=== PATIENT | female | born 1950 | race African-American/Black ===

== ENCOUNTER 2017-04-18 05:05 | Inpatient (IN) | payer MEDICARE, MEDICAID ==
[2017-04-18] MEDS: ASPIRIN CHEWABLE 81 MG TABLET. PO (05:26)
[2017-04-18 06:00] LABS: ADD MAN DIFF? NO
[2017-04-18 06:08] LABS: BASO # 0.1 x10^3/uL (0.0-0.2); BASO % 1 % (0-3); EOS # 0.1 x10^3/uL (0.0-0.7); EOS % 1 % (0-3); HEMATOCRIT 21.1 % (36.0-47.0); LYMPH # 1.8 x10^3/uL (1.0-4.8); LYMPH % 17 % (24-48); MEAN CORPUSCULAR HEMOGLOBIN 25 pg (25-35); MEAN CORPUSCULAR HGB CONC 30 g/dL (31-37); MEAN CORPUSCULAR VOLUME 84 fL (79-100); MONO # 0.8 x10^3/uL (0.0-1.1); MONO % 8 % (0-9); NEUT # 8.2 x10^3uL (1.8-7.7); NEUT % 74 % (31-73); PLATELET COUNT 418 x10^3/uL (140-400); RED BLOOD COUNT 2.49 x10^6/uL (3.50-5.40); RED CELL DISTRIBUTION WIDTH 18.2 % (11.5-14.5); WHITE BLOOD COUNT 11.1 x10^3/uL (4.0-11.0)
[2017-04-18 06:11] LABS: ANION GAP 3 (6-14); BLOOD UREA NITROGEN 31 mg/dL (7-20); BUN/CREATININE RATIO 26 (6-20); CARBON DIOXIDE 28 mmol/L (21-32); CHLORIDE 101 mmol/L (98-107); CREATININE 1.2 mg/dL (0.6-1.0); GFR 54.1; HEMOGLOBIN 6.3 g/dL (12.0-15.5); POTASSIUM 5.2 mmol/L (3.5-5.1); SODIUM 132 mmol/L (136-145)
[2017-04-18 06:13] LABS: GLUCOSE 465 mg/dL (70-99)
[2017-04-18 06:16] LABS: ALBUMIN 2.7 g/dL (3.4-5.0); ALBUMIN/GLOBULIN RATIO 0.6 (1.0-1.7); ALK PHOS 156 U/L (46-116); ALT (SGPT) 29 U/L (14-59); AST (SGOT) 26 U/L (15-37); TOTAL BILIRUBIN 0.1 mg/dL (0.2-1.0); TOTAL PROTEIN 6.9 g/dL (6.4-8.2)
[2017-04-18 06:19] LABS: TROPONINI < 0.017 ng/mL (0.000-0.055)
[2017-04-18] MEDS: IV NORMAL SALINE 1000ML BAG 1,000 ML IV ×3 (06:45→19:17)
[2017-04-18 07:09] LABS: CKMB INDEX 1.3 % (0-4); CKMB MASS 2.3 ng/mL (0.0-3.6); CREATINE KINASE 180 U/L (26-192)
[2017-04-18 08:19] LABS: NT-PRO BNP 56 pg/mL (0-124)
[2017-04-18 09:00] LABS: % SAT IRON 4 % (15-34); IRON,SERUM 12 ug/dL (50-170)
[2017-04-18 09:11] LABS: RETIC COUNT 2.3 % (0.5-2.5)
[2017-04-18 09:15] LABS: LACTATE DEHYDROGENASE 241 U/L (81-234)
[2017-04-18 09:15] LABS: FERRITIN 7 ng/mL (8-252)
[2017-04-18] MEDS ORDERED: LABETALOL 20 MG/4 ML DISP.SYRIN. IVP ×2 (09:30→10:30)
[2017-04-18] MEDS ORDERED: DEXTROSE 50% 25 GM / 50ML DISP.SYRIN. IV (09:30)
[2017-04-18] MEDS: IV NORMAL SALINE 500ML BAG 500 ML IV (09:30)
[2017-04-18 09:37] LABS: FECAL OB PT POSITIVE (NEG); NEG OBC FOB NEG; POS OBC FOB POS
[2017-04-18 10:09] LABS: % BANDS 3 % (0-9); % EOS 1 % (0-5); % LYMPHS 18 % (24-48); % MONOS 6 % (0-10); % SEGS 72 % (35-66); HYPOCHROMIA PRESENT; PLT ESTIMATE ADEQUATE (ADEQUATE); POIKILOCYTOSIS PRESENT; POLYCHROMASIA PRESENT
[2017-04-18 10:10] LABS: ANISOCYTOSIS PRESENT; CHOLESTEROL 146 mg/dL (0-200); HDLC 60 mg/dL (40-60); LDLC 61 mg/dL (0-100); MICROCYTOSIS PRESENT; NON-HDL CHOLESTEROL 86 mg/dL (0-129); TRIGLYCERIDES 124 mg/dL (0-150); VLDLC 25 mg/dL (0-40)
[2017-04-18 10:11] LABS: CHOLESTEROL/HDL RATIO 2.4
[2017-04-18] MEDS ORDERED: ONDANSETRON PF 4 MG/2 ML VIAL. IV (10:30)
[2017-04-18] MEDS ORDERED: ONDANSETRON ODT 4 MG TAB.RAPDIS. PO (10:30)
[2017-04-18] MEDS ORDERED: MAGNESIUM HYDROXIDE 2,400 MG/30 ML ORAL.SUSP. PO (10:30)
[2017-04-18] MEDS ORDERED: ACETAMINOPHEN 325 MG TABLET. PO (10:30)
[2017-04-18] MEDS ORDERED: ACETAMINOPHEN 500 MG TABLET PO (10:30)
[2017-04-18] MEDS ORDERED: ALBUTEROL SULFATE 2.5 MG/3 ML NEBU. NEB (10:45)
[2017-04-18] MEDS: SODIUM POLYSTYRENE SULFONATE 15 GM/60 ML ORAL.SUSP. PO (10:47)
[2017-04-18] MEDS: MAGNESIUM HYDROXIDE 2,400 MG/30 ML ORAL.SUSP. PO (10:47)
[2017-04-18] MEDS: POLYETHYLENE GLYCOL 3350 17 GM PACKET. PO (10:47)
[2017-04-18] MEDS: HYDROcodone/APAP 5/325MG 1 TAB TABLET PO ×2 (10:53→17:22)
[2017-04-18] MEDS: CALCIUM CARB/VIT D3 500/200 TABLET. PO (11:00)
[2017-04-18 11:05] LABS: POC GLUCOSE 434 mg/dL (70-99)
[2017-04-18] MEDS: INSULIN ASPART 300 UNITS/3 ML INSULN.PEN SQ ×5 (11:13→17:26)
[2017-04-18 11:18] LABS: FREE T4 0.86 ng/dL (0.76-1.46)
[2017-04-18 11:18] LABS: THYROID STIM HORMONE (TSH) 2.502 uIU/mL (0.358-3.74)
[2017-04-18] MEDS: IPRATRPIUM/ALBUTEROL 0.5/2.5MG 3 ML NEBU. NEB ×3 (11:47→19:55)
[2017-04-18] MEDS: TRIAMCINOLONE ACETONIDE 0.1% TOPICAL CREAM 15GM TUBE. TP ×2 (14:00→21:00)
[2017-04-18] MEDS: LACTOBACILLUS RHAMNOSUS GG 1 CAPSULE. PO ×2 (15:55→22:42)
[2017-04-18] MEDS: TRIAMTERENE/HCTZ 37.5/25MG TABLET. PO (15:55)
[2017-04-18] MEDS: DOCUSATE SODIUM 100 MG CAPSULE. PO ×2 (15:55→21:00)
[2017-04-18] MEDS: CHOLECALCIFEROL (VITAMIN D3) 1,000 UNIT TABLET PO (15:56)
[2017-04-18] MEDS: ASCORBIC ACID 500 MG TABLET PO (15:56)
[2017-04-18] MEDS: GABAPENTIN 400 MG CAPSULE. PO ×2 (15:56→22:42)
[2017-04-18] MEDS: buPROPion SR 100 MG TABLET.SA. PO ×2 (15:56→22:42)
[2017-04-18] MEDS: DULoxetine HCL 30 MG CAPSULE.DR PO (15:56)
[2017-04-18] MEDS: FERROUS SULFATE 325 MG TABLET. PO (15:57)
[2017-04-18] MEDS: LEVOTHYROXINE 100 MCG TABLET PO (15:57)
[2017-04-18] MEDS: MULTIVITAMIN with MINERAL TABLET. PO (15:57)
[2017-04-18] MEDS: LISINOPRIL 20 MG TABLET PO (15:58)
[2017-04-18] MEDS: INSULIN DETEMIR 300 UNITS/3 ML INSULN.PEN. SQ ×2 (16:04→22:46)
[2017-04-18] MEDS: NYSTATIN 100,000 UNIT/GM TOPICAL CREAM 15GM TUBE. TP ×2 (16:07→21:00)
[2017-04-18 16:12] LABS: POC GLUCOSE 319 mg/dL (70-99)
[2017-04-18 17:04] LABS: POC GLUCOSE 354 mg/dL (70-99)
[2017-04-18 18:11] LABS: HAPTOGLOBIN 212 mg/dL (34-200)
[2017-04-18] MEDS: SODIUM PHOSPHATES 19/7GM 133 ML ENEMA. PR (18:44)
[2017-04-18 20:20] LABS: POC GLUCOSE 336 mg/dL (70-99)
[2017-04-18] MEDS ORDERED: NON FORMULARY ITEM (Nystatin/Triamcin (Nystatin-Triamcinolone Cream) 1 APP) TP (21:00)
[2017-04-18] MEDS: PANTOPRAZOLE 40 MG TABLET.DR. PO (22:41)
[2017-04-18] MEDS: traZODone 50 MG TABLET. PO (22:42)
[2017-04-18] MEDS: MONTELUKAST SODIUM 10 MG TABLET. PO (22:42)
[2017-04-19] MEDS: IV NORMAL SALINE 1000ML BAG 1,000 ML IV ×2 (05:17→15:17)
[2017-04-19] MEDS: HYDROcodone/APAP 5/325MG 1 TAB TABLET PO ×3 (05:41→22:21)
[2017-04-19] MEDS: IPRATRPIUM/ALBUTEROL 0.5/2.5MG 3 ML NEBU. NEB ×4 (07:13→20:00)
[2017-04-19] MEDS: INSULIN ASPART 300 UNITS/3 ML INSULN.PEN SQ ×6 (07:30→17:43)
[2017-04-19 08:40] LABS: POC GLUCOSE 92 mg/dL (70-99)
[2017-04-19] MEDS ORDERED: NON FORMULARY ITEM (Tiotropium Bromide (Spiriva) 1 CAP) IH (09:00)
[2017-04-19] MEDS ORDERED: LIDOCAINE WITH 8.4% SOD BICARB 3 ML DISP.SYRIN. (09:18)
[2017-04-19] MEDS: LIDOCAINE WITH 8.4% SOD BICARB 3 ML DISP.SYRIN. IJ (09:30)
[2017-04-19] MEDS: CHOLECALCIFEROL (VITAMIN D3) 1,000 UNIT TABLET PO (10:15)
[2017-04-19] MEDS: TRIAMCINOLONE ACETONIDE 0.1% TOPICAL CREAM 15GM TUBE. TP ×3 (10:15→21:00)
[2017-04-19] MEDS: NYSTATIN 100,000 UNIT/GM TOPICAL CREAM 15GM TUBE. TP ×3 (10:15→21:00)
[2017-04-19] MEDS: DULoxetine HCL 30 MG CAPSULE.DR PO (10:15)
[2017-04-19] MEDS: buPROPion SR 100 MG TABLET.SA. PO ×2 (10:15→20:53)
[2017-04-19] MEDS: LISINOPRIL 20 MG TABLET PO (10:15)
[2017-04-19] MEDS: POLYETHYLENE GLYCOL 3350 17 GM PACKET. PO (10:15)
[2017-04-19] MEDS: LACTOBACILLUS RHAMNOSUS GG 1 CAPSULE. PO ×2 (10:15→20:53)
[2017-04-19] MEDS: MULTIVITAMIN with MINERAL TABLET. PO (10:15)
[2017-04-19] MEDS: GABAPENTIN 400 MG CAPSULE. PO ×3 (10:15→20:53)
[2017-04-19] MEDS: INSULIN DETEMIR 300 UNITS/3 ML INSULN.PEN. SQ ×2 (10:15→22:24)
[2017-04-19] MEDS: DOCUSATE SODIUM 100 MG CAPSULE. PO ×2 (10:15→20:53)
[2017-04-19] MEDS: FERROUS SULFATE 325 MG TABLET. PO (10:15)
[2017-04-19] MEDS: CALCIUM CARB/VIT D3 500/200 TABLET. PO (10:15)
[2017-04-19] MEDS: ASCORBIC ACID 500 MG TABLET PO (10:15)
[2017-04-19] MEDS: TRIAMTERENE/HCTZ 37.5/25MG TABLET. PO (10:15)
[2017-04-19] MEDS: LEVOTHYROXINE 100 MCG TABLET PO (10:15)
[2017-04-19 10:41] LABS: ADD MAN DIFF? NO
[2017-04-19 10:47] LABS: BASO # 0.1 x10^3/uL (0.0-0.2); BASO % 1 % (0-3); EOS # 0.1 x10^3/uL (0.0-0.7); EOS % 1 % (0-3); LYMPH # 1.7 x10^3/uL (1.0-4.8); LYMPH % 17 % (24-48); MEAN CORPUSCULAR HEMOGLOBIN 25 pg (25-35); MEAN CORPUSCULAR HGB CONC 30 g/dL (31-37); MEAN CORPUSCULAR VOLUME 83 fL (79-100); MONO # 0.9 x10^3/uL (0.0-1.1); MONO % 9 % (0-9); NEUT # 7.7 x10^3uL (1.8-7.7); NEUT % 73 % (31-73); PLATELET COUNT 409 x10^3/uL (140-400); RED BLOOD COUNT 2.46 x10^6/uL (3.50-5.40); RED CELL DISTRIBUTION WIDTH 18.4 % (11.5-14.5); WHITE BLOOD COUNT 10.5 x10^3/uL (4.0-11.0)
[2017-04-19 10:53] LABS: HEMATOCRIT 20.4 % (36.0-47.0); HEMOGLOBIN 6.1 g/dL (12.0-15.5)
[2017-04-19 11:03] LABS: ALBUMIN 2.7 g/dL (3.4-5.0); ALBUMIN/GLOBULIN RATIO 0.7 (1.0-1.7); ALK PHOS 154 U/L (46-116); ALT (SGPT) 27 U/L (14-59); ANION GAP 8 (6-14); AST (SGOT) 25 U/L (15-37); BLOOD UREA NITROGEN 27 mg/dL (7-20); BUN/CREATININE RATIO 27 (6-20); CALCIUM 8.9 mg/dL (8.5-10.1); CARBON DIOXIDE 30 mmol/L (21-32); CHLORIDE 101 mmol/L (98-107); GFR 66.7; GLUCOSE 132 mg/dL (70-99); POTASSIUM 4.3 mmol/L (3.5-5.1); SODIUM 139 mmol/L (136-145); TOTAL BILIRUBIN 0.2 mg/dL (0.2-1.0); TOTAL PROTEIN 6.8 g/dL (6.4-8.2)
[2017-04-19 11:10] LABS: CROSSMATCH AHG 1 1
[2017-04-19 12:04] LABS: SICKLE CELL SCREEN NEGATIVE
[2017-04-19 13:50] LABS: POC GLUCOSE 228 mg/dL (70-99)
[2017-04-19] MEDS: traZODone 50 MG TABLET. PO (20:54)
[2017-04-19] MEDS: MONTELUKAST SODIUM 10 MG TABLET. PO (20:54)
[2017-04-19] MEDS: PANTOPRAZOLE 40 MG TABLET.DR. PO (20:54)
[2017-04-19 23:11] LABS: MRSA BY PCR Positive (Negative)
[2017-04-20] MEDS: IV NORMAL SALINE 1000ML BAG 1,000 ML IV ×3 (01:17→21:17)
[2017-04-20 06:32] LABS: POC GLUCOSE 97 mg/dL (70-99)
[2017-04-20] MEDS: IPRATRPIUM/ALBUTEROL 0.5/2.5MG 3 ML NEBU. NEB ×4 (07:13→20:45)
[2017-04-20] MEDS: INSULIN ASPART 300 UNITS/3 ML INSULN.PEN SQ ×6 (07:30→17:04)
[2017-04-20 07:49] LABS: POC GLUCOSE 201 mg/dL (70-99)
[2017-04-20] MEDS: TRIAMCINOLONE ACETONIDE 0.1% TOPICAL CREAM 15GM TUBE. TP ×3 (09:00→20:00)
[2017-04-20] MEDS: NYSTATIN 100,000 UNIT/GM TOPICAL CREAM 15GM TUBE. TP ×3 (09:00→20:00)
[2017-04-20] MEDS: buPROPion SR 100 MG TABLET.SA. PO ×2 (09:44→22:18)
[2017-04-20] MEDS: MULTIVITAMIN with MINERAL TABLET. PO (09:44)
[2017-04-20] MEDS: DOCUSATE SODIUM 100 MG CAPSULE. PO ×2 (09:45→22:19)
[2017-04-20] MEDS: LEVOTHYROXINE 100 MCG TABLET PO (09:45)
[2017-04-20] MEDS: FERROUS SULFATE 325 MG TABLET. PO (09:45)
[2017-04-20] MEDS: ASCORBIC ACID 500 MG TABLET PO (09:45)
[2017-04-20] MEDS: CALCIUM CARB/VIT D3 500/200 TABLET. PO (09:45)
[2017-04-20] MEDS: TRIAMTERENE/HCTZ 37.5/25MG TABLET. PO (09:45)
[2017-04-20] MEDS: LACTOBACILLUS RHAMNOSUS GG 1 CAPSULE. PO ×2 (09:45→22:18)
[2017-04-20] MEDS: GABAPENTIN 400 MG CAPSULE. PO ×3 (09:45→22:19)
[2017-04-20] MEDS: DULoxetine HCL 30 MG CAPSULE.DR PO (09:45)
[2017-04-20] MEDS: LISINOPRIL 20 MG TABLET PO (09:46)
[2017-04-20] MEDS: CHOLECALCIFEROL (VITAMIN D3) 1,000 UNIT TABLET PO (09:46)
[2017-04-20] MEDS: POLYETHYLENE GLYCOL 3350 17 GM PACKET. PO ×3 (09:46→22:23)
[2017-04-20] MEDS: INSULIN DETEMIR 300 UNITS/3 ML INSULN.PEN. SQ ×2 (09:59→21:00)
[2017-04-20 10:12] LABS: POC GLUCOSE 124 mg/dL (70-99)
[2017-04-20 11:02] LABS: POC GLUCOSE 294 mg/dL (70-99)
[2017-04-20] MEDS: PANTOPRAZOLE 40 MG TABLET.DR. PO (11:30)
[2017-04-20 12:39] LABS: HEMATOCRIT 30.1 % (36.0-47.0); HEMOGLOBIN 8.5 g/dL (12.0-15.5); MEAN CORPUSCULAR HGB CONC 28 g/dL (31-37)
[2017-04-20 14:41] LABS: RETIC COUNT 3.2 % (0.5-2.5)
[2017-04-20] MEDS: ALTEPLASE 2 MG VIAL INT CAT ×2 (14:47)
[2017-04-20 14:51] LABS: LACTATE DEHYDROGENASE 238 U/L (81-234)
[2017-04-20 16:37] LABS: POC GLUCOSE 304 mg/dL (70-99)
[2017-04-20 22:14] LABS: POC GLUCOSE 107 mg/dL (70-99)
[2017-04-20] MEDS: MONTELUKAST SODIUM 10 MG TABLET. PO (22:18)
[2017-04-20] MEDS: HYDROcodone/APAP 5/325MG 1 TAB TABLET PO (22:18)
[2017-04-20] MEDS: traZODone 50 MG TABLET. PO (22:19)
[2017-04-21 00:32] LABS: POC GLUCOSE 143 mg/dL (70-99)
[2017-04-21] MEDS ORDERED: MORPHINE SULFATE 2 MG/ML DISP.SYRIN. IV (07:00)
[2017-04-21] MEDS ORDERED: PROCHLORPERAZINE 10 MG/2 ML VIAL. IV (07:00)
[2017-04-21] MEDS ORDERED: fentaNYL PF VIAL 100 MCG/2 ML VIAL IV ×2 (07:00)
[2017-04-21] MEDS ORDERED: ONDANSETRON PF 4 MG/2 ML VIAL. IV (07:00)
[2017-04-21] MEDS ORDERED: LIDOCAINE 1% PF 2 ML VIAL. ID (07:00)
[2017-04-21] MEDS: IPRATRPIUM/ALBUTEROL 0.5/2.5MG 3 ML NEBU. NEB ×4 (07:15→19:34)
[2017-04-21] MEDS: PANTOPRAZOLE 40 MG TABLET.DR. PO (07:30)
[2017-04-21] MEDS: INSULIN ASPART 300 UNITS/3 ML INSULN.PEN SQ ×6 (07:30→18:09)
[2017-04-21] MEDS: LEVOTHYROXINE 100 MCG TABLET PO (07:30)
[2017-04-21 07:40] LABS: POC GLUCOSE 157 mg/dL (70-99)
[2017-04-21] MEDS: FERROUS SULFATE 325 MG TABLET. PO ×3 (08:00→18:05)
[2017-04-21] MEDS: CHOLECALCIFEROL (VITAMIN D3) 1,000 UNIT TABLET PO (09:00)
[2017-04-21] MEDS: ASCORBIC ACID 500 MG TABLET PO (09:00)
[2017-04-21] MEDS: CALCIUM CARB/VIT D3 500/200 TABLET. PO (09:00)
[2017-04-21] MEDS: DULoxetine HCL 30 MG CAPSULE.DR PO (09:00)
[2017-04-21] MEDS: LACTOBACILLUS RHAMNOSUS GG 1 CAPSULE. PO ×2 (09:00→20:24)
[2017-04-21] MEDS: NYSTATIN 100,000 UNIT/GM TOPICAL CREAM 15GM TUBE. TP ×3 (09:00→21:00)
[2017-04-21] MEDS: buPROPion SR 100 MG TABLET.SA. PO ×2 (09:00→20:24)
[2017-04-21] MEDS: INSULIN DETEMIR 300 UNITS/3 ML INSULN.PEN. SQ ×2 (09:00→22:02)
[2017-04-21] MEDS: MULTIVITAMIN with MINERAL TABLET. PO (09:00)
[2017-04-21] MEDS: GABAPENTIN 400 MG CAPSULE. PO ×3 (09:00→20:24)
[2017-04-21] MEDS: LISINOPRIL 20 MG TABLET PO (09:00)
[2017-04-21] MEDS: POLYETHYLENE GLYCOL 3350 17 GM PACKET. PO ×2 (09:00→20:27)
[2017-04-21] MEDS: TRIAMTERENE/HCTZ 37.5/25MG TABLET. PO (09:00)
[2017-04-21] MEDS: DOCUSATE SODIUM 100 MG CAPSULE. PO ×2 (09:00→20:24)
[2017-04-21] MEDS: TRIAMCINOLONE ACETONIDE 0.1% TOPICAL CREAM 15GM TUBE. TP ×3 (09:00→21:00)
[2017-04-21] MEDS: IV RINGERS,LACTATED 1000ML 1,000 ML IV (11:34)
[2017-04-21 11:38] LABS: POC GLUCOSE 220 mg/dL (70-99)
[2017-04-21] MEDS ORDERED: LIDOCAINE 2% PF Vial for OR 5 ML VIAL. (12:01)
[2017-04-21] MEDS ORDERED: PROPOFOL 20 ML IV (12:01)
[2017-04-21 16:36] LABS: POC GLUCOSE 214 mg/dL (70-99)
[2017-04-21] MEDS: MONTELUKAST SODIUM 10 MG TABLET. PO (20:24)
[2017-04-21] MEDS: HYDROcodone/APAP 5/325MG 1 TAB TABLET PO (20:25)
[2017-04-21] MEDS: traZODone 50 MG TABLET. PO (20:25)
[2017-04-21 20:55] LABS: POC GLUCOSE 181 mg/dL (70-99)
[2017-04-22] MEDS: IPRATRPIUM/ALBUTEROL 0.5/2.5MG 3 ML NEBU. NEB ×2 (07:31→11:40)
[2017-04-22 08:05] LABS: POC GLUCOSE 189 mg/dL (70-99)
[2017-04-22] MEDS: CHOLECALCIFEROL (VITAMIN D3) 1,000 UNIT TABLET PO (08:40)
[2017-04-22] MEDS: buPROPion SR 100 MG TABLET.SA. PO (08:40)
[2017-04-22] MEDS: POLYETHYLENE GLYCOL 3350 17 GM PACKET. PO (08:41)
[2017-04-22] MEDS: TRIAMTERENE/HCTZ 37.5/25MG TABLET. PO ×2 (08:41→08:59)
[2017-04-22] MEDS: LEVOTHYROXINE 100 MCG TABLET PO (08:41)
[2017-04-22] MEDS: GABAPENTIN 400 MG CAPSULE. PO (08:41)
[2017-04-22] MEDS: MULTIVITAMIN with MINERAL TABLET. PO (08:42)
[2017-04-22] MEDS: PANTOPRAZOLE 40 MG TABLET.DR. PO (08:42)
[2017-04-22] MEDS: DULoxetine HCL 30 MG CAPSULE.DR PO (08:43)
[2017-04-22] MEDS: DOCUSATE SODIUM 100 MG CAPSULE. PO (08:43)
[2017-04-22] MEDS: FERROUS SULFATE 325 MG TABLET. PO ×2 (08:43→12:41)
[2017-04-22] MEDS: LACTOBACILLUS RHAMNOSUS GG 1 CAPSULE. PO (08:43)
[2017-04-22] MEDS: CALCIUM CARB/VIT D3 500/200 TABLET. PO (08:43)
[2017-04-22] MEDS: ASCORBIC ACID 500 MG TABLET PO (08:44)
[2017-04-22] MEDS: INSULIN DETEMIR 300 UNITS/3 ML INSULN.PEN. SQ (08:52)
[2017-04-22] MEDS: INSULIN ASPART 300 UNITS/3 ML INSULN.PEN SQ ×4 (08:53→12:47)
[2017-04-22] MEDS: LISINOPRIL 20 MG TABLET PO (08:57)
[2017-04-22] MEDS: NYSTATIN 100,000 UNIT/GM TOPICAL CREAM 15GM TUBE. TP (09:00)
[2017-04-22] MEDS: TRIAMCINOLONE ACETONIDE 0.1% TOPICAL CREAM 15GM TUBE. TP (09:00)
[2017-04-22 11:39] LABS: POC GLUCOSE 219 mg/dL (70-99)
== END 2017-04-22 15:20 | disposition home or self-care (01) | DRG 377 ==
LOC: ER 05:05 → 5 SOUTH 07:00
PROC: 0DB78ZX Excision of Stomach, Pylorus, Via Natural or Artificial Opening Endoscopic, Diagnostic (ICD-10-PCS; principal; 2017-04-21 12:09)
PROC: 30233N1 Transfusion of Nonautologous Red Blood Cells into Peripheral Vein, Percutaneous Approach (ICD-10-PCS; 2017-04-21 12:09)
PROC: 02HV33Z Insertion of Infusion Device into Superior Vena Cava, Percutaneous Approach (ICD-10-PCS; 2017-04-21 12:09)
PROC: B548ZZA Ultrasonography of Superior Vena Cava, Guidance (ICD-10-PCS; 2017-04-21 12:09)
DX: K31.811 Angiodysplasia of stomach and duodenum with bleeding (principal); N17.0 Acute kidney failure with tubular necrosis; E11.00 Type 2 diabetes mellitus with hyperosmolarity without nonketotic hyperglycemic-hyperosmolar coma (NKHHC); E11.22 Type 2 diabetes mellitus with diabetic chronic kidney disease; E66.01 Morbid (severe) obesity due to excess calories; R13.10 Dysphagia, unspecified; E11.649 Type 2 diabetes mellitus with hypoglycemia without coma; Z68.42 Body mass index [BMI] 45.0-49.9, adult; K55.20 Angiodysplasia of colon without hemorrhage; M94.0 Chondrocostal junction syndrome [Tietze]; E87.5 Hyperkalemia; D50.9 Iron deficiency anemia, unspecified; R07.2 Precordial pain; I10 Essential (primary) hypertension; R79.89 Other specified abnormal findings of blood chemistry; Z85.3 Personal history of malignant neoplasm of breast; E03.9 Hypothyroidism, unspecified; E78.5 Hyperlipidemia, unspecified; F32.9 Major depressive disorder, single episode, unspecified; G47.33 Obstructive sleep apnea (adult) (pediatric); I12.9 Hypertensive chronic kidney disease with stage 1 through stage 4 chronic kidney disease, or unspecified chronic kidney disease; L89.91 Pressure ulcer of unspecified site, stage 1; J44.9 Chronic obstructive pulmonary disease, unspecified; K31.7 Polyp of stomach and duodenum; F12.90 Cannabis use, unspecified, uncomplicated; M19.90 Unspecified osteoarthritis, unspecified site; K59.00 Constipation, unspecified; K63.5 Polyp of colon; L89.90 Pressure ulcer of unspecified site, unspecified stage; N18.9 Chronic kidney disease, unspecified; Z74.01 Bed confinement status; Z79.4 Long term (current) use of insulin; Z79.82 Long term (current) use of aspirin; Z79.899 Other long term (current) drug therapy; Z82.3 Family history of stroke; Z82.49 Family history of ischemic heart disease and other diseases of the circulatory system; Z83.3 Family history of diabetes mellitus; Z90.10 Acquired absence of unspecified breast and nipple; Z90.710 Acquired absence of both cervix and uterus; Z99.3 Dependence on wheelchair; Z87.440 Personal history of urinary (tract) infections
CPT/HCPCS: 36415; 36569; 71045; 76937; 77001; 80053; 80061; 82274; 82553; 82728; 82962; 83010; 83540; 83550; 83615; 83880; 84439; 84443; 84481; 84484; 85007; 85014; 85018; 85025; 85045; 85660; 86850; 86900; 86901; 86902; 86922; 87641; 88305; 88342; 93005; 93306; 94640; 94660; 94760; 95811; 96360; 99291; 99291-25; C1751; J1815; J2704; J2997; J7030; J7120; J7620; P9016